=== PATIENT | male | born 1995 | race Caucasian/White ===

== ENCOUNTER 2018-05-22 17:20 | Emergency (ER) | payer MEDICAID ==
--- NOTE | 2018-05-22 17:35 | EDPHY ---
H & P Time Seen by Provider: 05/22/18 17:35 HPI/ROS: HPI CHIEF COMPLAINT: Abdominal pain x 3 months. HISTORY OF PRESENT ILLNESS: Patient is a 22-year-old male, otherwise healthy, denies any significant medical history except for anxiety, PTSD, depression, history of polysubstance abuse, presents emergency room stating that for the past 3 months he has had intermittent abdominal pain. Describes a burning sensation in his epigastric region that radiates up to his throat. Very often in the morning. He believes it is bad reflux. He is not taking any medications regularly for this. Decided come to the emergency room today for evaluation for this. He denies any chest pain or shortness of breath. Upon arrival he states he does not have any abdominal pain his last episode of abdominal pain was yesterday. Patient denies any bloody or black tarry stools. Denies lower abdominal pain specifically denies right lower quadrant abdominal pain. The patient is refusing any IV establishment or blood draw. He states he simply wants reflux medication. He does not want any imaging. Past Medical History: Denies medical history except for anxiety, PTSD, depression Past Surgical History: Denies any significant surgical history Social History: History of polysubstance abuse. No longer on any drugs. Family History: Noncontributory ROS REVIEW OF SYSTEMS: 10 Systems were reviewed and negative with the exception of the elements mentioned in the history of present illness. Exam Constitutional appears well nontoxic no acute distress, triage nursing summary reviewed, vital signs reviewed, awake/alert. Eyes normal conjunctivae and sclera, EOMI, PERRLA. HENT normal inspection, atraumatic, moist mucus membranes, no epistaxis, neck supple/ no meningismus, no raccoon eyes. Respiratory clear to auscultation bilaterally, normal breath sounds, no respiratory distress, no wheezing. Cardiovascular rate normal, regular rhythm, no murmur, no edema, distal pulses normal. Gastrointestinal I cannot elicit any significant tenderness on exam, soft, non- tender, no rebound, no guarding, normal bowel sounds, no distension, no pulsatile mass. Genitourinary no CVA tenderness. Musculoskeletal no midline vertebral tenderness, full range of motion, no calf swelling, no tenderness of extremities, no meningismus, good pulses, neurovascularly intact. Skin pink, warm, & dry, no rash, skin atraumatic. Neurologic awake, alert and oriented x 3, AAOx3, moves all 4 extremities equally, motor intact, sensory intact, CN II-XII intact, normal cerebellar, normal vision, normal speech. Psychiatric normal mood/affect. Heme/Lymph/Immune no lymphadenopathy. Differential Diagnosis: Differential diagnosis includes but is not limited to and in no particular order: Bowel obstruction, appendicitis, gallbladder disease, diverticulitis, colitis, enteritis, perforated viscus, gastritis, GERD , esophagitis, urinary tract infection, pyelonephritis, kidney stones Medical Decision Making: Plan for this patient patient is declining any IV establishment or blood draw, declining any imaging, he reports to me that he would like stomach acid medicine. Re-evaluation: . 182: The patient understands that given that we have not done any blood work or imaging that I cannot fully evaluate his abdominal pain. He is asking for GERD medications. I did explain that without further evaluation emergency room we cannot be 100% sure this is what it is. However I will prescribe him antacid medication, as well as Carafate. If he has worsening abdominal pain he understands he needs return emergency room. He is declined IV establishment IV blood work is declined any imaging. Return precautions discussed with the patient. He understands return if develops worsening abdominal pain, fever, vomiting, not doing well. Source: Patient - Medical/Surgical History Hx Asthma: Yes Hx Chronic Respiratory Disease: No Hx Diabetes: No Hx Cardiac Disease: No Hx Renal Disease: No Hx Cirrhosis: No Hx Alcoholism: No Hx HIV/AIDS: No Hx Splenectomy or Spleen Trauma: No Other PMH: hemorrhoids Constitutional: Initial Vital Signs Temperature (C) 36.9 C 05/22/18 17:33 Heart Rate 79 05/22/18 17:33 Respiratory Rate 18 05/22/18 17:33 Blood Pressure 122/74 H 05/22/18 17:33 O2 Sat (%) 94 05/22/18 17:33 O2 Delivery Mode Room Air Allergies/Adverse Reactions: No Known Allergies Allergy (Unverified 05/22/18 17:32) Home Medications: Medication Instructions Recorded METHADONE HCL 05/22/18 Ranitidine HCl [Zantac] 150 mg PO DAILY #30 tablet 05/22/18 Seroquel 05/22/18 Sucralfate [Carafate 1 GM (*)] 1 gm PO ACHS #30 tab 05/22/18 Zoloft 100mg (*) 05/22/18 Departure - Departure Disposition: Home, Routine, Self-Care Clinical Impression: Gastritis Qualifiers: Gastritis type: unspecified gastritis Chronicity: acute Gastritis bleeding: without bleeding Qualified Code(s): K29.00 - Acute gastritis without bleeding Condition: Good Instructions: Gastritis (ED) Additional Instructions: 1. Stay away from spicy fatty greasy foods. 2. Recommend antacid medication for the next month. 3. Follow up with Gastroenterology. 4. Return to the emergency room if develops worsening abdominal pain, fever, vomiting. Referrals: NONE *PRIMARY CARE P,. [Primary Care Provider] - As per Instructions Lance Wagner MD [Medical Doctor] - As per Instructions Prescriptions: Ranitidine HCl [Zantac] 150 mg PO DAILY #30 tablet Sucralfate [Carafate 1 GM (*)] 1 gm PO ACHS #30 tab
[2018-05-22 17:36] VITALS: BP 122/74
== END 2018-05-22 18:30 | disposition home or self-care (01) ==
LOC: CED 17:20
DX: K29.00 Acute gastritis without bleeding (principal); F41.9 Anxiety disorder, unspecified; F32.9 Major depressive disorder, single episode, unspecified; F43.10 Post-traumatic stress disorder, unspecified
CPT/HCPCS: 99284-ER